=== PATIENT | male | born 1945 | race Caucasian/White ===

== ENCOUNTER 2019-07-04 10:10 | Outpatient (CLI) | payer OTHER ==
--- NOTE | 2019-07-04 10:57 | ULT ---
RIGHT LOWER EXTREMITY VENOUS ULTRASOUND WITH DOPPLER: HISTORY: Chronic right lower extremity thrombus. COMPARISON: 01/26/2019 at [facility]. TECHNIQUE: Grayscale, color flow, Doppler imaging and spectral waveform analysis performed of the right lower ex tremity venous system. FINDINGS: There is compressibility, presence of flow and augmentation in the femoral vein and popliteal vein. T here is flow in the greater saphenous vein, profunda femoral vein and posterior tibial vein. There is partial compressibility with echogenic material in the lumen of the common femoral vein suggesting partial thrombosis/nonocclusive thrombus. IMPRESSION: Nonocclusive thrombus in the common femoral vein. Remainder of the right lower extremity deep venous system does not demonstrate thrombus. Transcribed Date/Time: 07/04/2019 11:10 AM
== END 2019-07-04 10:11 | disposition home or self-care (01) ==
LOC: SCSULT 10:10
PROVIDERS: ATTEND Family Medicine
DX: I82.501 Chronic embolism and thrombosis of unspecified deep veins of right lower extremity (principal)